=== PATIENT | female | born 1990 | race Caucasian/White ===

== ENCOUNTER 2019-10-22 09:39 | Emergency (ER) | payer BC ==
--- OUTSIDE RECORDS SUMMARY | 2019-10-22 09:46 | XMS REPORT | Continuity of Care Document ---
:1990 External Reference #:[id number] Author Name Tere Quick MD Address [address] [place] [address] Problems Description No Information Available Social History Type Date Description Comments Sex Unknown Cigarette Use Current Cigarette Smoker 1 Pack Daily ETOH Use Currently consumes approx 2 drinks q alcohol month Recreational Drug Use Denies Drug Use Tobacco Use Start: Unknown Patient is a current smoker, smokes every day Smoking Status Reviewed: 08/26/19 Patient is a current smoker, smokes every day Exercise Type/Frequency Does not exercise Seat Belt/Car Seat Always uses seat belt Allergies, Adverse Reactions, Alerts Description No Known Drug Allergies Medications Active Medications SIG Qnty Indications Ordering Provider Date Multivitamin Adult Unknown Vitamin D Unknown Immunizations Description No Information Available Vital Signs Date Vital Result Comment 08/26/2019 8:23am BP Systolic 138 mmHg BP Diastolic 86 mmHg Height 65 inches 5'5" Weight 261.00 lb BMI (Body Mass Index) 43.4 kg/m2 Last Menstrual Period [id number] Results Test Acquired Date Facility Test Result H/L Range Note Laboratory test 08/26/2019 [facility] <pending> finding [place], [place] [id number] [phone] Procedures Description No Information Available Medical Devices Description No Information Available Encounters Type Date Location Provider Dx Diagnosis Office Visit 08/26/2019 [facility] Tere Quick, Z01.411 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 (general) (routine) w abnormal findings E66.8 Other obesity N97.9 Female infertility, unspecified Z72.0 Tobacco use Assessments Date Code Description Provider 08/26/2019 Z01.411 Encounter for gynecological examination Tere Quick MD (general) (routine) with abnormal findings 08/26/2019 E66.8 Other obesity Tere Quick MD 08/26/2019 N97.9 Female infertility, unspecified Tere Quick MD 08/26/2019 Z72.0 Tobacco use Tere Quick MD Plan of Treatment 08/26/2019 - Tere Quick MDZ01.411 Encounter for gynecological examination (general) (routine) with abnormal findingsComments:Maintain routine exercise and healthy diet. Try to get adequate sleep at night to improve your overall health (most people need ~8 hours!)Perform periodic breast exams at various times of the month to become familiar with your breast tissue so you are more likely to notice something abnormal. Return for annual exam in 1 year or earlier if concerns arise. Routine cervical cancer screening has changed. Pap smears are no longer done every year for low-risk women. A combination screening with both a pap smear (looking for abnormal cells) and HPV testing are recommended every 3-5 years. It takes many years for normal cells to become abnormal and many more years for the abnormal cells to become cancer. Women should still come for a yearly visit and exam. When there is an abnormal pap smear or +HPV testing more frequent screening is recommended.E66.8 Other obesityComments:Discussed diet/exercise changes and importance of weight loss including impacts on fertility and .N97.9 Female infertility, unspecifiedComments:Discussed importance of many lifestyle changes. Reviewed normal cycles, ovulation, LH testing (recommend doing a little bit later in cycle), BBT and increasing frequency of intercourse around ovulation.Z72.0 Tobacco useComments:Discussed importance of cessation. She will discuss with PCP and consider medication for assistance.Discussed effects on fertility and . Functional Status Description No Information Available Mental Status Description No Information Available Referrals Description No Information Available
[2019-10-22 09:49] VITALS: BP 153/106
--- NOTE | 2019-10-22 10:41 | UC ---
Nausea/Vomiting/Diarrhea HPI - HPI Summary HPI Summary: 29-year-old female presenting with diarrhea 1 week. Patient states the stools were looser at first but have become "pure water" since last night. Denies blood in the stool. She notes 3-4 episodes of diarrhea per day. Notes intermittent nausea with episodes of diarrhea. Denies recent travel. Denies abdominal pain. Denies vomiting. Denies current nausea. Normal appetite and fluid intake. Patient also notes that she has a sore throat that started this morning. Denies nasal congestion and cough. Denies fever and chills. Denies body aches. Patient notes she has a history of IBS and that the symptoms last anywhere from a day to over a week sometimes. Denies taking anything for symptom relief. Admits that she "never takes anything for her IBS but knows she should." States flares "happen a lot" and that she "only ever has either diarrhea or constipation." - History of Current Complaint Chief Complaint: UCGeneralIllness Stated Complaint: DIARRHEA SORE THROAT Hx Obtained From: Patient Hx Last Menstrual Period: 10/16/2019 Pain Intensity: 0 - Allergies/Home Medications Allergies/Adverse Reactions: Allergies Allergy/AdvReac Type Severity Reaction Status Date / Time No Known Allergies Allergy Verified 10/22/19 09:50 Home Medications: Home Medications NK [No Home Medications Reported] 10/22/19 [History Confirmed 10/22/19] PMH/Surg Hx/FS Hx/Imm Hx GI/ History: Other - IBS - Surgical History Surgical History: Yes Surgery Procedure, Year, and Place: [facility] - Social History Alcohol Use: Occasionally Substance Use Type: None Smoking Status (MU): Light Every Day Tobacco Smoker Length of Time of Smoking/Using Tobacco: vape Review of Systems All Other Systems Reviewed And Are Negative: Yes Constitutional: Positive: Negative. Negative: Fever, Chills ENT: Positive: Sore Throat Respiratory: Positive: Negative Cardiovascular: Positive: Negative Gastrointestinal: Positive: Diarrhea. Negative: Abdominal Pain, Vomiting, Nausea Genitourinary: Positive: Negative Musculoskeletal: Positive: Negative Neurological: Positive: Negative Physical Exam - Summary Physical Exam Summary: Vital Signs Reviewed: Yes A+Ox3, no distress Eyes: Conjunctiva Clear ENT: Hearing grossly normal TM x 2 clear, moist, uvula midline, no exudate, + pharyngeal erythema Neck: Positive: Supple Respiratory: Positive: No respiratory distress, No accessory muscle use + CTA throughout no w/r Cardiovascular: RRR nl s1, s2 no m/r Abd: soft + BS nt/nd no guarding Musculoskeletal Exam: ODEN x 4 without difficulty Neurological: Positive: Alert Psychological: Positive: age appropriate behavior Skin: Positive: no rash, no ecchymosis Vital Signs: Initial Vital Signs Temp 98 F 10/22/19 09:43 Pulse 100 10/22/19 09:43 Resp 20 10/22/19 09:43 BP 153/106 10/22/19 09:43 Pulse Ox 100 10/22/19 09:43 Lab Results 10/22/19 10/22/19 Range/Units 10:28 10:34 Influenza A (Rapid) Negative (Negative) Influenza B (Rapid) Negative (Negative) Group A Strep Rapid Negative (Negative) Naus/Vom/Diarrhea Course/Dx - Course Course Of Treatment: Negative rapid strep and flu. Discussed viral illness and symptomatic treatment of sore throat with patient. Also discussed IBS and symptomatic treatment including fiber, fluids, and Imodium to help relieve diarrhea. Discussed elevated blood pressure in the clinic here today with patient. Patient admits to history of hypertension and was taking labetalol up until 2 years ago when she states she stopped the medication "just because." Denies having a primary care provider in the area. I provided the patient with referral for primary care and instructed to follow up within the next couple weeks for recheck of blood pressure and IBS symptoms. Instructed to go to ED with any new or worsening symptoms. Patient voiced understanding and agreed with treatment plan. - Differential Dx/Diagnosis Differential Diagnoses - Female: Irritable Bowel Syndrome, Gastroenteritis ( Viral) Provider Diagnosis: Irritable bowel syndrome with diarrhea, Pharyngitis, Hypertension Condition At Discharge: Stable Discharge ED - Sign-Out/Discharge Documenting (check all that apply): Patient Departure All imaging exams completed and their final reports reviewed: No Studies - Discharge Plan Condition: Stable Disposition: HOME Patient Education Materials: Irritable Bowel Syndrome (ED), Pharyngitis (ED), Acute Diarrhea (ED), Hypertension (ED) Forms: *Work Release Referrals: [facility] [Outside] - If Needed [facility] [place] [facility]FERRAL [Outside] - 2 Weeks Additional Instructions: Your flu and strep tests were negative today. Continue to take over the counter pain medications for sore throat. You may also use throat lozenges, throat sprays, and tea with honey. Increase your fiber and take imodium as directed for diarrhea symptoms. Increase your fluid intake to avoid dehydration. Eat a bland diet, such as bread, bananas, and rice while symptoms are present. Go to the emergency department if your symptoms worsen or you develop fever, excessive vomiting/diarrhea, or are unable to keep fluids down. Your blood pressure was elevated at 153/106 today. Follow up with the physician referral listed below to establish with a primary care provider and to have your blood pressure rechecked within 2-4 weeks. - Billing Disposition and Condition Condition: STABLE Disposition: Home
[2019-10-22 10:46] LABS: Influenza A Molecular Negative (Negative); Influenza B Molecular Negative (Negative)
== END 2019-10-22 11:00 | disposition home or self-care (01) ==
LOC: UCEAST 09:39
DX: K58.0 Irritable bowel syndrome with diarrhea (principal); I10 Essential (primary) hypertension; J02.9 Acute pharyngitis, unspecified; R11.0 Nausea; F17.290 Nicotine dependence, other tobacco product, uncomplicated
CPT/HCPCS: 87651; 99211; G0463

== ENCOUNTER 2021-06-11 16:53 | Inpatient (IN) ==
[~2021-06-11 16:53] MED LIST: Buffered Lidocaine 1% SYRIN 1 ml INTRADERM ONE; Lactated Ringers 1000 ml BAG 1,000 ML IV ONE; Lactated Ringers 1000 ml BAG 1,000 ML IV SCH
[2021-06-11] MEDS: Dinoprostone 10 MG VAG.SUPP VAGINAL ONE (17:38)
[2021-06-11 18:02] LABS: ABS Eosinophils 0.1 10^3/ul (0-0.6); ABS Monocytes 0.5 10^3/ul (0-0.8); ABS Neutrophils 6.5 10^3/ul (1.5-7.7); Eosinophil % 0.6 %; Hematocrit 32 % (35-47); Hemoglobin 10.6 g/dL (12.0-16.0); Lymphocyte % 22.3 %; Mean Corpuscular HGB Conc 34 g/dL (31-36); Mean Corpuscular Hemoglobin 29 pg (27-31); Mean Corpuscular Volume 87 fL (80-97); Mean Platelet Volume 8.3 fL (7.4-10.4); Platelet Count 203 10^3/uL (150-450); Red Blood Count 3.64 10^6 /uL (3.70-4.87); Red Cell Distribution Width 15 % (10-15); White Blood Count 9.1 10^3/uL (3.5-10.8)
[2021-06-11 18:07] LABS: Urine Appearance Cloudy; Urine Bilirubin Negative (Negative); Urine Blood Negative (Negative); Urine Color Yellow; Urine Glucose Negative (Negative); Urine Ketones Trace (Negative); Urine Nitrite Negative (Negative); Urine Protein 2+(100 mg/dL) (Negative); Urine Specific Gravity 1.028 (1.002-1.030); Urine Urobilinogen Negative (Negative)
[2021-06-11 18:10] LABS: Urine Bacteria Absent (Absent); Urine Red Blood Cell 1+(3-5/hpf) (Absent); Urine Squamous Epithelial Cell Present (Absent); Urine White Blood Cell Trace(0-5/hpf) (Absent)
[2021-06-11 18:21] LABS: Albumin 3.3 g/dL (3.2-5.2); Albumin/Globulin Ratio 1.2 (1-3); EGFR African American 129.3 (>60); EGFR Non-African American 106.9 (>60); Globulin 2.8 g/dL (2-4); Potassium 3.8 mmol/L (3.5-5.0); Total Bilirubin 0.2 mg/dL (0.2-1.0); Total Protein 6.1 g/dL (6.4-8.9); Uric Acid 5.9 mg/dL (2.3-6.6)
[2021-06-11 18:38] LABS: Urine Benzodiazepine Screen None Detected (None Detect); Urine Cannabinoids Screen None Detected (None Detect); Urine Opiates Screen None Detected (None Detect)
[2021-06-11] MEDS: Insulin NPH 100 units/ml SUBCUT SCH (21:02)
[2021-06-11] MEDS ORDERED: Calcium Carb (TUMS) 500 mg CHEW TAB PO PRN (21:20)
[2021-06-12] MEDS: Dinoprostone 10 MG VAG.SUPP VAGINAL ONE (00:15)
[2021-06-12] MEDS: Insulin NPH 100 units/ml SUBCUT SCH (21:05)
[2021-06-13 17:01] LABS: ABS Eosinophils 0.1 10^3/ul (0-0.6); ABS Lymphocytes 1.9 10^3/ul (1.0-4.8); ABS Monocytes 0.5 10^3/ul (0-0.8); ABS Neutrophils 6.8 10^3/ul (1.5-7.7); Eosinophil % 0.6 %; Hematocrit 34 % (35-47); Hemoglobin 11.7 g/dL (12.0-16.0); Lymphocyte % 20.3 %; Mean Corpuscular HGB Conc 35 g/dL (31-36); Mean Corpuscular Hemoglobin 30 pg (27-31); Mean Corpuscular Volume 86 fL (80-97); Platelet Count 206 10^3/uL (150-450); Red Blood Count 3.94 10^6 /uL (3.70-4.87); Red Cell Distribution Width 16 % (10-15); White Blood Count 9.4 10^3/uL (3.5-10.8)
[2021-06-13 17:45] LABS: Albumin 3.4 g/dL (3.2-5.2); Albumin/Globulin Ratio 1.2 (1-3); Calcium 8.5 mg/dL (8.6-10.3); EGFR African American 164.3 (>60); EGFR Non-African American 135.8 (>60); Globulin 2.8 g/dL (2-4); Potassium 3.9 mmol/L (3.5-5.0); Total Bilirubin 0.2 mg/dL (0.2-1.0); Total Protein 6.2 g/dL (6.4-8.9); Uric Acid 5.7 mg/dL (2.3-6.6)
[2021-06-13] MEDS ORDERED: Glycerin ADULT 2.4 gm SUPP PR ONE (20:39)
[2021-06-13] MEDS: Insulin NPH 100 units/ml SUBCUT SCH (21:04)
[2021-06-14] MEDS ORDERED: Oxytocin in LR 20 UNITS/1,000 ML BAG IVPB SCH ×2 (06:00→15:00)
[2021-06-14 11:11] LABS: ABS Eosinophils 0.1 10^3/ul (0-0.6); ABS Lymphocytes 1.8 10^3/ul (1.0-4.8); ABS Monocytes 0.5 10^3/ul (0-0.8); ABS Neutrophils 7.8 10^3/ul (1.5-7.7); Eosinophil % 0.6 %; Hematocrit 37 % (35-47); Hemoglobin 12.5 g/dL (12.0-16.0); Lymphocyte % 17.7 %; Mean Corpuscular HGB Conc 34 g/dL (31-36); Mean Corpuscular Hemoglobin 30 pg (27-31); Mean Corpuscular Volume 87 fL (80-97); Mean Platelet Volume 8.7 fL (7.4-10.4); Platelet Count 225 10^3/uL (150-450); Red Blood Count 4.23 10^6 /uL (3.70-4.87); Red Cell Distribution Width 16 % (10-15); White Blood Count 10.2 10^3/uL (3.5-10.8)
[2021-06-14] MEDS ORDERED: Buffered Lidocaine 1% SYRIN 1 ml INTRADERM ONE (11:26)
[2021-06-14] MEDS ORDERED: Sodium Citrate/Citric Acid LIQ 15 ML UDC PO ONE (11:26)
[2021-06-14] MEDS ORDERED: Famotidine IV 10 MG/ML 2 ml VIAL (20 mg) IV ONE (11:26)
[2021-06-14] MEDS ORDERED: Ondansetron 4 mg VIAL 2 MG/ML 2 ml VIAL IV ONE (11:26)
[2021-06-14] MEDS ORDERED: ceFOXitin 2 GM IVPREMIX 2 GM/50 ML BAG IVPB ONE (11:26)
[2021-06-14] MEDS ORDERED: Dextrose 50% Syringe 50 ml 25 GM/50 ML SYRINGE ONE (11:41)
[2021-06-14] MEDS ORDERED: Ammonia Inhalant 1 EA AMP ONE (11:47)
[2021-06-14] MEDS ORDERED: Lactated Ringers 1000 ml BAG 1,000 ML IV SCH ×2 (12:00→15:00)
[2021-06-14] MEDS ORDERED: Morphine PF AMP (0.5MG/ML) 5 MG/10 ML AMP ONE (12:03)
[2021-06-14] MEDS ORDERED: fentaNYL 100 mcg/2 ml 50 MCG/ML VIAL ONE (12:03)
[2021-06-14] MEDS ORDERED: Phenylephrine 40 mcg/mL 10mL (400mcg) SYRINGE ONE (12:38)
[2021-06-14] MEDS ORDERED: Carboprost Tromethamine 250 mcg 1 ml VIAL ONE (13:00)
[2021-06-14] MEDS ORDERED: Oxytocin 10 UNITS/ML 1 ML VIAL ONE ×2 (13:57)
[2021-06-14] MEDS ORDERED: Metoclopramide 5 MG/ML VIAL (10 mg) IV PRN (14:08)
[2021-06-14] MEDS ORDERED: oxyCODONE/Acetamin 5/325 mg TAB PO PRN (14:08)
[2021-06-14] MEDS ORDERED: Ondansetron 4 mg VIAL 2 MG/ML 2 ml VIAL IV PRN ×2 (14:08)
[2021-06-14] MEDS ORDERED: Naloxone 0.4 mg VIAL 0.4 mg/ml 1 ml VIAL IV PRN ×2 (14:08)
[2021-06-14] MEDS ORDERED: Acetaminophen IV 1 GM/100 ML BAG IV ONE (14:08)
[2021-06-14] MEDS ORDERED: Dibucaine 1% OINT 28.35 GM TUBE PR PRN (14:47)
[2021-06-14] MEDS ORDERED: Glycerin ADULT 2.4 gm SUPP PR PRN (14:47)
[2021-06-14] MEDS ORDERED: Witch Hazel PAD JAR TOPICAL PRN (14:47)
[2021-06-14 14:54] LABS: Urine Appearance Clear; Urine Bilirubin Negative (Negative); Urine Blood 1+ (Negative); Urine Color Yellow; Urine Glucose Negative (Negative); Urine Ketones Negative (Negative); Urine Nitrite Negative (Negative); Urine Protein Negative (Negative); Urine Specific Gravity 1.009 (1.002-1.030); Urine Urobilinogen Negative (Negative)
[2021-06-14] MEDS: fentaNYL 100 mcg/2 ml 50 MCG/ML VIAL IV PRN ×2 (15:02→15:30)
[2021-06-14 15:18] LABS: Urine Bacteria Absent (Absent); Urine Red Blood Cell Trace(0-2/hpf) (Absent); Urine Squamous Epithelial Cell Present (Absent); Urine White Blood Cell Trace(0-5/hpf) (Absent)
[2021-06-15 07:01] LABS: ABS Eosinophils 0.1 10^3/ul (0-0.6); ABS Lymphocytes 1.6 10^3/ul (1.0-4.8); ABS Monocytes 0.7 10^3/ul (0-0.8); ABS Neutrophils 7.6 10^3/ul (1.5-7.7); Eosinophil % 0.9 %; Hematocrit 31 % (35-47); Hemoglobin 10.6 g/dL (12.0-16.0); Lymphocyte % 15.6 %; Mean Corpuscular HGB Conc 35 g/dL (31-36); Mean Corpuscular Hemoglobin 30 pg (27-31); Mean Corpuscular Volume 86 fL (80-97); Mean Platelet Volume 8.7 fL (7.4-10.4); Platelet Count 179 10^3/uL (150-450); Red Blood Count 3.56 10^6 /uL (3.70-4.87); Red Cell Distribution Width 16 % (10-15)
[2021-06-16 08:03] VITALS: BP 139/67
== END 2021-06-16 14:39 | disposition home or self-care (01) | DRG 540 ==
LOC: MCHOBOUT 16:53 → MCHOB 18:03
PROVIDERS: ADMIT Obstetrics & Gynecology; ATTEND Obstetrics & Gynecology

== ENCOUNTER 2022-10-03 07:30 | Inpatient (IN) ==
[~2022-10-03 07:30] MED LIST changes: -Lactated Ringers 1000 ml BAG 1,000 ML IV ONE; +Scopolamine 1 mg/72hr PATCH TRANSDERM ONE
[2022-10-03] MEDS ORDERED: Lidocaine 2% PF 5 ML VIAL ONE (08:41)
[2022-10-03] MEDS ORDERED: Propofol 10 MG/ML 20 ML BTL ONE ×3 (08:41→13:11)
[2022-10-03] MEDS ORDERED: Rocuronium 50 mg VIAL 10 mg/ml 5 ml VIAL (50 mg) ONE ×3 (08:42→12:29)
[2022-10-03] MEDS ORDERED: Phenylephrine IV 10 MG/ML 1 ml VIAL ONE (08:42)
[2022-10-03] MEDS ORDERED: Succinylcholine 200 mg VIAL 20 mg/ml 10 ml VIAL (200 mg) ONE (08:42)
[2022-10-03] MEDS ORDERED: fentaNYL 250 mcg/5 ml 50 MCG/ML 5 ml VIAL (250 MCG) ONE (08:48)
[2022-10-03] MEDS ORDERED: Midazolam 2 mg/2 ml VIAL 1 mg/ml 2 ml VIAL (2 mg) ONE (08:48)
[2022-10-03] MEDS ORDERED: Heparin 5000 UNITS/ML 1 mL VIAL ONE (08:49)
[2022-10-03] MEDS ORDERED: Scopolamine 1 mg/72hr PATCH ONE (08:49)
[2022-10-03] MEDS ORDERED: ceFAZolin *3* GM in NS PREMIX 3 GM/100 ML BAG IV ONE (08:50)
[2022-10-03] MEDS ORDERED: Methylene Blue 0.5 % 50 MG/10 ML AMP IV ONE (09:26)
[2022-10-03] MEDS ORDERED: Acetaminophen IV 1 GM/100ML 1,000 MG/100 ML BAG IV ONE (12:42)
[2022-10-03] MEDS: Acetaminophen IV 1 GM/100ML 1,000 MG/100 ML BAG IV SCH ×2 (12:43→20:21)
[2022-10-03] MEDS ORDERED: fentaNYL 100 mcg/2 ml 50 MCG/ML VIAL ONE ×2 (13:17→15:27)
[2022-10-03] MEDS ORDERED: Sugammadex 500 MG/5 ML 5 ml VIAL IV PUSH ONE ×2 (13:37→16:17)
[2022-10-03] MEDS ORDERED: HYDROmorphone 1 MG/1 ML SYRINGE IV SLOW PU PRN (13:47)
[2022-10-03] MEDS ORDERED: HYDROmorphone 0.5 MG/0.5 ML SYRINGE IV SLOW PU PRN (13:47)
[2022-10-03] MEDS ORDERED: FLUTICASONE SALMETEROL INH PRN (13:56)
[2022-10-03] MEDS ORDERED: Naloxone 0.4 mg VIAL 0.4 mg/ml 1 ml VIAL IV PRN (14:17)
[2022-10-03] MEDS ORDERED: Prochlorperazine 5 mg/ml 2 ml VIAL (10 mg) IV PRN (14:17)
[2022-10-03] MEDS ORDERED: HYDROmorphone 1 MG/1 ML SYRINGE IV PRN (14:17)
[2022-10-03] MEDS ORDERED: fentaNYL 100 mcg/2 ml 50 MCG/ML VIAL IV PRN (14:17)
[2022-10-03] MEDS ORDERED: Ondansetron 4 mg VIAL 2 MG/ML 2 ml VIAL ONE ×2 (14:18→15:21)
[2022-10-03] MEDS: Ondansetron 4 mg VIAL 2 MG/ML 2 ml VIAL IV PRN ×2 (14:20→20:17)
[2022-10-03] MEDS ORDERED: HYDROmorphone 1 MG/1 ML SYRINGE ONE (14:24)
[2022-10-03] MEDS ORDERED: Prochlorperazine 5 mg/ml 2 ml VIAL (10 mg) ONE (15:09)
[2022-10-03] MEDS ORDERED: Dexamethasone IV 4 MG/ML VIAL 1 ml VIAL ONE (15:21)
[2022-10-03] MEDS ORDERED: Haloperidol 5 mg/ml SDV IV/IM 5 MG/ML AMP ONE (15:26)
[2022-10-03] MEDS ORDERED: Haloperidol 5 mg/ml SDV IV/IM 5 MG/ML AMP IV SLOW PU PRN (15:27)
[2022-10-03] MEDS ORDERED: Metoprolol Tartrate 5 mg VIAL 5 ml VIAL (1 mg/ml) ONE (15:39)
[2022-10-03] MEDS ORDERED: Albuterol HFA INHALER 8 gm MDI INH PRN (16:47)
[2022-10-03] MEDS: Lactated Ringers 1000 ml BAG 1,000 ML IV SCH (19:38)
[2022-10-03] MEDS: Famotidine IV 10 MG/ML 2 ml VIAL (20 mg) IV SLOW PU SCH (20:17)
[2022-10-03] MEDS: Heparin 5000 UNITS/ML 1 mL VIAL SUBCUT SCH (22:02)
[2022-10-04] MEDS: Ondansetron 4 mg VIAL 2 MG/ML 2 ml VIAL IV PRN ×2 (02:15→07:56)
[2022-10-04] MEDS: Acetaminophen IV 1 GM/100ML 1,000 MG/100 ML BAG IV SCH ×3 (02:15→13:52)
[2022-10-04] MEDS: Lactated Ringers 1000 ml BAG 1,000 ML IV SCH ×2 (03:43→10:32)
[2022-10-04] MEDS: Heparin 5000 UNITS/ML 1 mL VIAL SUBCUT SCH ×2 (06:01→13:50)
[2022-10-04] MEDS: Famotidine IV 10 MG/ML 2 ml VIAL (20 mg) IV SLOW PU SCH (07:55)
[2022-10-04] MEDS ORDERED: D5W 1/2 NS KCl 20 meq 1000 ml 1,000 ML IV SCH (14:00)
[2022-10-04 15:48] VITALS: BP 137/80
== END 2022-10-04 17:30 | disposition home or self-care (01) | DRG 403 ==
LOC: AA 08:13
PROVIDERS: ADMIT Surgery; ATTEND Surgery